=== PATIENT | female | born 1980 | race Caucasian/White ===

== ENCOUNTER 2016-08-14 21:59 | Inpatient (IN) | payer OTHER ==
[2016-08-14] MEDS ORDERED: INSULIN REGULAR BOLUS (FROM DRIP BAG) IV ONE (22:31)
[2016-08-14] MEDS ORDERED: SODIUM CHLORIDE 0.9% 1,000 ML IV ONE (22:31)
--- NOTE | 2016-08-14 22:40 | ED ---
General Adult HPI - General Chief complaint: Shortness of Breath Stated complaint: ASHLEY Dehydrated Time Seen by Provider: 08/14/16 22:18 Source: patient, family, RN notes reviewed Mode of arrival: ambulatory Limitations: no limitations - History of Present Illness Initial comments: Chief complaint history of present illness a 36-year-old female brought him from home because she wasn't feeling well. Complaining of stomach cramps nausea vomiting all day. Unable to keep any fluids down. Accu-Chek upon arrival to emergency room was over 600. The patient's type I diabetic. - Related Data Allergies Allergy/AdvReac Type Severity Reaction Status Date / Time No Known Allergies Allergy Verified 08/14/16 22:06 Review of Systems ROS Statement: Those systems with pertinent positive or pertinent negative responses have been documented in the HPI. Review of systems. Patient reports she feels so bad she can't even talk. Her friend answered questions. 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 He thought she was taken or glucose levels and thought there was 250 range but he did not see her do it. She states she did not check her sugar today. Unable to keep any fluids or food down all day normal for 24 hours. Patient has had a past history of DKA. All systems reviewed. Past medical problems but diabetes mellitus. No apparent surgical history. No known ALLERGIES. Family history noncontributory. ROS Other: All systems not noted in ROS Statement are negative. Past Medical History Past Medical History: Diabetes Mellitus History of Any Multi-Drug Resistant Organisms: None Reported Past Surgical History: No Surgical Hx Reported Past Psychological History: No Psychological Hx Reported Smoking Status: Current every day smoker Past Alcohol Use History: None Reported Past Drug Use History: None Reported General Exam - General Exam Comments Initial Comments: General: The patient is awake and alert, in moderate distress complaining of abdominal discomfort from frequent vomiting. States she's too sick even talk. Vital signs show temperature 97.9 pulse elevated to 134 sinus tach on EKG. Respiratory rate 20 pulse ox 99% room air blood pressure 157 /98. Eyes patient won't open her eyes for examination. Said she is too uncomfortable Ears, nose, mouth and throat: There are moist mucous membranes , Noted only while talking. Neck: The neck is supple, there is no tenderness Cardiovascular: Tachycardic heart rate, 140 No murmur, rub or gallop is appreciated. Respiratory: Lungs are clear to auscultation, respirations are non-labored, breath sounds are equal. No wheezes, stridor, rales, or rhonchi. Gastrointestinal: Complaining of abdominal pain from frequent vomiting for the past 24 hours. Back: Unable to examine his patient will rollover. Musculoskeletal: Patient pulls her knees up because of discomfort. Neurological: No evidence of any neuro deficits on cursory exam. Patient not cooperative. Skin: Skin is warm and dry and no rashes or lesions are noted. Limitations: no limitations Course Vital Signs 08/14/16 08/14/16 08/14/16 22:03 22:20 22:50 Temperature 97.9 F Pulse Rate 134 H 141 H 138 H Respiratory 20 26 H 27 H Rate Blood Pressure 157/98 146/92 152/85 O2 Sat by Pulse 99 96 96 Oximetry 08/14/16 23:20 Temperature Pulse Rate 130 H Respiratory 22 Rate Blood Pressure 178/69 O2 Sat by Pulse 98 Oximetry EKG Findings - EKG Comments: EKG Findings:: EKG was done and reviewed at 2211 showing sinus tachycardia rate 142 by atrial enlargement. WV interval was 1:30 QRS 76 QTc to [address] Garcia Medical Decision Making - Medical Decision Making Medical decision-making. Patient's labs show white count 25.8 hemoglobin 16 hematocrit of 57. The patient's sodium is 139 potassium elevated at 6.7. CO2 is less than 5. Gap 34. BUN 17 creatinine 1.3 GFR 51. Glucose measured by the labs be 699. Plasma lactic acid is elevated at 4.5. Phosphorus at 10.3. Acetone positive. Urine is 4+ glucose 4+ ketones. This patient was taken directly to the room after signing in. The patient had an IV started hydration was started and insulin IV push and insulin drip was initiated immediately. At this time the patient has received IV fluids and IV insulin. She has improved significantly. Able to open her eyes and talk. Not complaining of any pain. Denying any fever or illnesses . Arterial blood gases done pH 6.89, pCO2 of 17.7, Po2 149. Bicarb 3.2. Base excess -27. , O2 97%. I discussed the case with Dr. Wan, ICU senior project coordinator. He has been consulted for this case. At this time the patient will be admitted to the ICU for further management of DKA. At this time he does not recommend bicarb drip. - Lab Data Result diagrams: 08/14/16 22:22 08/14/16 22:22 Lab Results 08/14/16 08/14/16 08/14/16 Range/Units 22:22 22:22 22:22 WBC 25.8 H* (3.8-10.6) k/uL RBC 6.02 H (3.80-5.40) m/uL Hgb 16.0 (11.4-16.0) gm/dL Hct 57.2 H (34.0-46.0) % MCV 95.1 D (80.0-100.0) fL MCH 26.6 (25.0-35.0) pg MCHC 28.0 L (31.0-37.0) g/dL RDW 12.1 (11.5-15.5) % Plt Count 468 H (150-450) k/uL Neutrophils % 83 % Lymphocytes % 12 % Monocytes % 3 % Eosinophils % 0 % Basophils % 0 % Neutrophils # 21.4 H (1.3-7.7) k/uL Lymphocytes # 3.2 (1.0-4.8) k/uL Monocytes # 0.7 (0-1.0) k/uL Eosinophils # 0.1 (0-0.7) k/uL Basophils # 0.1 (0-0.2) k/uL Hypochromasia Marked Sodium 139 (137-145) mmol/L Potassium 6.7 H* (3.5-5.1) mmol/L Chloride 100 (98-107) mmol/L Carbon Dioxide <5 L* (22-30) mmol/L Anion Gap 34 mmol/L BUN 17 (7-17) mg/dL Creatinine 1.20 H (0.52-1.04) mg/dL Est GFR (MDRD) Af Amer >60 (>60 ml/min/1.73 sqM) Est GFR (MDRD) Non-Af 51 (>60 ml/min/1.73 sqM) Glucose 699 H* (74-99) mg/dL POC Glucose (mg/dL) (75-99) mg/dL POC Glu Bench Scientist ID Plasma Lactic Acid Yusef 4.5 H* (0.7-2.0) mmol/L Phosphorus 10.3 H* (2.5-4.5) mg/dL Urine Color Urine Appearance (Clear) Urine pH (5.0-8.0) Ur Specific [place] (1.001-1.035) Urine Protein (Negative) Urine Glucose (UA) (Negative) Urine Ketones (Negative) Urine Blood (Negative) Urine Nitrate (Negative) Urine Bilirubin (Negative) Urine Urobilinogen (<2.0) mg/dL Ur Leukocyte Esterase (Negative) Urine WBC (0-5) /hpf Ur Squamous Epith Cells (0-4) /hpf Hyaline Casts (0-2) /lpf Urine Mucus (None) /hpf Acetone, Qual Positive (Negative) 08/14/16 08/14/16 08/15/16 Range/Units 23:15 23:26 00:02 WBC (3.8-10.6) k/uL RBC (3.80-5.40) m/uL Hgb (11.4-16.0) gm/dL Hct (34.0-46.0) % MCV (80.0-100.0) fL MCH (25.0-35.0) pg MCHC (31.0-37.0) g/dL RDW (11.5-15.5) % Plt Count (150-450) k/uL Neutrophils % % Lymphocytes % % Monocytes % % Eosinophils % % Basophils % % Neutrophils # (1.3-7.7) k/uL Lymphocytes # (1.0-4.8) k/uL Monocytes # (0-1.0) k/uL Eosinophils # (0-0.7) k/uL Basophils # (0-0.2) k/uL Hypochromasia Sodium (137-145) mmol/L Potassium (3.5-5.1) mmol/L Chloride (98-107) mmol/L Carbon Dioxide (22-30) mmol/L Anion Gap mmol/L BUN (7-17) mg/dL Creatinine (0.52-1.04) mg/dL Est GFR (MDRD) Af Amer (>60 ml/min/1.73 sqM) Est GFR (MDRD) Non-Af (>60 ml/min/1.73 sqM) Glucose (74-99) mg/dL POC Glucose (mg/dL) >600 H 564 H (75-99) mg/dL POC Glu Bench Scientist NABOR Dagoberto Potter Dagoberto Potter Plasma Lactic Acid Yusef (0.7-2.0) mmol/L Phosphorus (2.5-4.5) mg/dL Urine Color Light Yellow Urine Appearance Clear (Clear) Urine pH 5.5 (5.0-8.0) Ur Specific [place] 1.017 (1.001-1.035) Urine Protein 1+ H (Negative) Urine Glucose (UA) 4+ H (Negative) Urine Ketones 4+ H (Negative) Urine Blood Trace H (Negative) Urine Nitrate Negative (Negative) Urine Bilirubin Negative (Negative) Urine Urobilinogen <2.0 (<2.0) mg/dL Ur Leukocyte Esterase Negative (Negative) Urine WBC 1 (0-5) /hpf Ur Squamous Epith Cells 2 (0-4) /hpf Hyaline Casts 1 (0-2) /lpf Urine Mucus Rare H (None) /hpf Acetone, Qual (Negative) Disposition Clinical Impression: Diabetic ketoacidosis Disposition: ADMITTED IP TO THIS [facility] Condition: Serious
[2016-08-14] MEDS ORDERED: METOCLOPRAMIDE 5 MG/ML 2 ML VIAL IVP STA (22:59)
[2016-08-14 23:04] LABS: Basophils # (A) 0.1 k/uL (0-0.2); Basophils % (A) 0 %; CH 25.7; CHCM 27.2; Eosinophils # (A) 0.1 k/uL (0-0.7); Eosinophils % (A) 0 %; HCT 57.2 % (34.0-46.0); Hypochromasia Marked; Luc # (Auto) 0.29; Luc % (Auto) 1; Lymphocytes # (A) 3.2 k/uL (1.0-4.8); Lymphocytes % (A) 12 %; MCH 26.6 pg (25.0-35.0); Mean Platelet Volume 7.7; Monocytes # (A) 0.7 k/uL (0-1.0); Monocytes % (A) 3 %; Neutrophils # (A) 21.4 k/uL (1.3-7.7); Neutrophils % (A) 83 %; RBC 6.02 m/uL (3.80-5.40); RDW 12.1 % (11.5-15.5); WBC (Perox) 26.78
[2016-08-14] MEDS ORDERED: HYDROmorphone 1 MG/ML 1 ML SYRINGE IVP STA (23:06)
[2016-08-14 23:11] LABS: MCV 95.1 fL (80.0-100.0)
[2016-08-14 23:12] LABS: WBC 25.8 k/uL (3.8-10.6)
[2016-08-14 23:13] LABS: Anion Gap 34 mmol/L; Blood Urea Nitrogen 17 mg/dL (7-17); Chloride 100 mmol/L (98-107); Non-African American GFR(MDRD) 51 (>60 ml/min/1.73 sqM); Sodium 139 mmol/L (137-145)
[2016-08-14 23:22] LABS: Glucose 699 mg/dL (74-99); Potassium 6.7 mmol/L (3.5-5.1)
[2016-08-14] MEDS: INSULIN REGULAR 100 UNIT in SODIUM CHLORIDE 0.9% 100 ML IV SCH (23:22)
[2016-08-14 23:23] LABS: Carbon Dioxide <5 mmol/L (22-30); Phosphorous 10.3 mg/dL (2.5-4.5)
[2016-08-14 23:29] LABS: Appearance,Urine Clear (Clear); Bilirubin,Urine Negative (Negative); Glucose,Urine (UA) 4+ (Negative); Leukocyte Esterase,Urine Negative (Negative); Mucus,Urine Rare /hpf; Nitrite,Urine Negative (Negative); PH, Urine 5.5 (5.0-8.0); Particle Count 1750; Protein,Urine 1+ (Negative); Specific Gravity,Urine 1.017 (1.001-1.035); Squamous Epithelial Cell,Urine 2 /hpf (0-4); UA Billing (MACRO vs. MICRO) MICRO; Urobilinogen,Urine <2.0 mg/dL (<2.0); WBC,Urine 1 /hpf (0-5)
[2016-08-14 23:31] LABS: Glucose,Whole Blood >600 mg/dL (75-99)
[2016-08-14 23:38] LABS: Ketones,Urine 4+ (Negative)
[2016-08-15 00:06] LABS: Glucose,Whole Blood 564 mg/dL (75-99)
[2016-08-15 00:59] LABS: ABG PCO2 18 mmHg (35-45); ABG PH <7.00 (7.35-7.45); ABG PO2 149 mmHg (83-108)
[2016-08-15 01:00] LABS: ABG HCO3 3 mmol/L (21-25); ABG TCO2 4 mmol/L (19-24)
[2016-08-15] MEDS ORDERED: SODIUM CHLORIDE 0.9% 2,000 ML IV ONE (01:00)
[2016-08-15] MEDS ORDERED: SODIUM CHLORIDE 0.9% 1,000 ML IV ONE (01:01)
[2016-08-15] MEDS: SODIUM CHLORIDE 0.9% 1,000 ML IV SCH ×2 (01:11→04:15)
[2016-08-15 01:16] LABS: Glucose,Whole Blood 420 mg/dL (75-99)
[2016-08-15 01:32] LABS: Glucose,Whole Blood 309 mg/dL (75-99)
[2016-08-15] MEDS: D5-0.45% NACL WITH KCL 20MEQ/L 1,000 ML IV SCH ×3 (02:18→09:27)
[2016-08-15 02:22] LABS: Glucose,Whole Blood 251 mg/dL (75-99)
[2016-08-15] MEDS ORDERED: NALOXONE 0.4 MG/ML 1 ML VIAL IV PRN (02:34)
[2016-08-15] MEDS: ONDANSETRON 4 MG/2 ML VIAL IVP PRN ×2 (03:15→08:18)
[2016-08-15 04:13] LABS: Glucose,Whole Blood 189 mg/dL (75-99)
[2016-08-15] MEDS: ACETAMINOPHEN IV (For NPO) 1,000 MG in EMPTY BAG 1 BAG IVPB PRN ×2 (04:14→09:27)
[2016-08-15 04:24] LABS: Basophils % (A) 0 %; CH 26.3; Eosinophils # (A) 0.2 k/uL (0-0.7); Eosinophils % (A) 1 %; HCT 44.4 % (34.0-46.0); HDW 2.33; HGB 13.2 gm/dL (11.4-16.0); Hypochromasia Marked; Luc # (Auto) 0.23; Luc % (Auto) 1; Lymphocytes # (A) 2.8 k/uL (1.0-4.8); Lymphocytes % (A) 12 %; MCH 26.1 pg (25.0-35.0); MCHC 29.6 g/dL (31.0-37.0); Mean Platelet Volume 6.6; Monocytes # (A) 1.1 k/uL (0-1.0); Monocytes % (A) 5 %; Neutrophils # (A) 19.8 k/uL (1.3-7.7); Neutrophils % (A) 82 %; RBC 5.04 m/uL (3.80-5.40); RDW 12.2 % (11.5-15.5); WBC 24.1 k/uL (3.8-10.6); WBC (Perox) 25.42
[2016-08-15 04:34] LABS: Anion Gap 21 mmol/L; Blood Urea Nitrogen 16 mg/dL (7-17); Calcium 8.2 mg/dL (8.4-10.2); Carbon Dioxide 8 mmol/L (22-30); Chloride 117 mmol/L (98-107); Glucose 198 mg/dL (74-99); Magnesium 1.8 mg/dL (1.6-2.3); Non-African American GFR(MDRD) >60 (>60 ml/min/1.73 sqM); Phosphorous 2.8 mg/dL (2.5-4.5); Potassium 4.9 mmol/L (3.5-5.1); Sodium 146 mmol/L (137-145)
[2016-08-15] MEDS ORDERED: Magnesium Replacement Protocol 1 EACH MISC MISCELLANE PRN (04:48)
[2016-08-15] MEDS: MAGNESIUM SULFATE-D5W PMX 1 GM in DEXTROSE/WATER 1 100ML.BAG IVPB SCH ×2 (06:09→10:21)
[2016-08-15 06:14] LABS: Glucose,Whole Blood 117 mg/dL (75-99)
[2016-08-15 07:10] LABS: Glucose,Whole Blood 146 mg/dL (75-99)
[2016-08-15 08:00] LABS: Glucose,Whole Blood 175 mg/dL (75-99)
[2016-08-15] MEDS: HEPARIN SODIUM,PORCINE 5,000 UNIT/ML 1 ML VIAL SQ SCH ×2 (08:18→17:10)
[2016-08-15] MEDS: PANTOPRAZOLE 40 MG/10 ML VIAL IV SCH (08:18)
[2016-08-15 09:00] LABS: Glucose,Whole Blood 207 mg/dL (75-99)
[2016-08-15 09:06] LABS: Anion Gap 20 mmol/L; Calcium 8.3 mg/dL (8.4-10.2); Chloride 118 mmol/L (98-107); Glucose 196 mg/dL (74-99); Non-African American GFR(MDRD) >60 (>60 ml/min/1.73 sqM); Sodium 145 mmol/L (137-145); Total Bilirubin 0.9 mg/dL (0.2-1.3)
[2016-08-15 09:12] LABS: AST 27 U/L (14-36); Blood Urea Nitrogen 13 mg/dL (7-17); Carbon Dioxide 7 mmol/L (22-30); Phosphorous 2.7 mg/dL (2.5-4.5); Potassium 5.1 mmol/L (3.5-5.1); Total Protein 7.5 g/dL (6.3-8.2)
[2016-08-15 09:13] LABS: ALT 29 U/L (9-52); Alkaline Phosphatase 99 U/L (38-126)
[2016-08-15 09:53] LABS: Hemoglobin A1C 10.4 % (4.2-6.1)
[2016-08-15 10:18] LABS: Glucose,Whole Blood 180 mg/dL (75-99)
[2016-08-15 11:20] LABS: Glucose,Whole Blood 178 mg/dL (75-99)
[2016-08-15 12:11] LABS: Glucose,Whole Blood 190 mg/dL (75-99)
--- NOTE | 2016-08-15 13:16 | P.HPIM ---
History of Present Illness H&P Date: 08/15/16 Chief Complaint: Abdominal pain and nausea This is a 36-year-old female with past medical history noted below significant for type 1 diabetes mellitus who presented to the emergency room with worsening abdominal pain and nausea. Patient said that for the past few days she has not been feeling well. She admitted that she misses her insulin once or twice a day as she has been under a lot of stress recently. She does not have a good follow-up as an outpatient and said that she has been buying her insulin from [employer] [id number] without any prescription. She recently has established care with a new primary care physician in May. She does not recall what was her last A1c. She is not sure about her insulin dosage either and appeared confused about her sliding scale. In the emergency room she was evaluated and was found to have DKA with elevated anion gap and significant metabolic acidosis. She was admitted to the intensive care. Review of Systems Review of system: 14 points review of systems were obtained and were negative except to what were mentioned in the HPI. Past Medical History Past Medical History: Diabetes Mellitus, Thyroid Disorder Additional Past Medical History / Comment(s): Had Anum's but resolved several years ago with diet changes History of Any Multi-Drug Resistant Organisms: None Reported Past Surgical History: No Surgical Hx Reported Past Anesthesia/Blood Transfusion Reactions: No Reported Reaction Past Psychological History: No Psychological Hx Reported Smoking Status: Former smoker Past Alcohol Use History: None Reported Past Drug Use History: None Reported - Past Family History Father Family Medical History: Hypertension Additional Family Medical History / Comment(s): High blood sugar, but not on meds for currently Medications and Allergies Home Medications Medication Instructions Recorded Confirmed Type Insulin NPH Human Isophane 32 unit SQ HS 08/15/16 08/15/16 History [NovoLIN N] Insulin NPH Human Isophane 35 unit SQ QAM 08/15/16 08/15/16 History [NovoLIN N] Insulin Regular, Human [NovoLIN R] 20 unit SQ QAM 08/15/16 08/15/16 History Insulin Regular, Human [NovoLIN R] 25 unit SQ HS 08/15/16 08/15/16 History Lisinopril [Zestril] 10 mg PO DAILY 08/15/16 08/15/16 History Allergies Allergy/AdvReac Type Severity Reaction Status Date / Time banana Allergy Anaphylaxis Verified 08/15/16 12:24 coconut Allergy Anaphylaxis Verified 08/15/16 12:24 Physical Exam Vitals: Vital Signs Temp Pulse Pulse Resp BP BP Pulse Ox 08/15/16 12:00 98.1 F 108 H 103 H 16 101/63 99 08/15/16 11:00 103 H 20 105/58 99 08/15/16 10:00 109 H 19 98/60 99 08/15/16 09:00 109 H 24 106/65 100 08/15/16 08:00 98.3 F 120 H 103 H 19 123/62 99 08/15/16 07:00 126 H 20 112/60 98 08/15/16 06:30 115 H 22 112/62 99 08/15/16 06:00 117 H 20 108/67 99 08/15/16 05:30 123 H 20 114/65 98 08/15/16 05:00 121 H 23 104/66 99 08/15/16 04:30 122 H 23 105/68 100 08/15/16 04:00 97.6 F 122 H 21 107/62 98 08/15/16 03:30 124 H 24 108/66 98 08/15/16 03:00 138 H 21 144/65 99 08/15/16 02:30 137 H 20 131/72 100 08/15/16 02:00 141 H 28 H 140/78 100 08/15/16 01:30 98.2 F 143 H 20 142/77 100 08/15/16 01:25 148 H 08/15/16 01:03 97.6 F 135 H 22 142/68 98 08/15/16 00:40 98.2 F 142 H 16 140/78 100 08/15/16 00:38 133 H 20 129/66 98 Intake and Output 08/14/16 08/15/16 08/15/16 22:59 06:59 14:59 Intake Total 1057.333 953.05 Output Total 2075 570 Balance -1017.667 383.05 Intake: IV 207 Insulin Regular 100 unit 7 In Sodium Chloride 0.9% 100 ml @ 0.1 UNITS/KG/HR 7.33 mls/hr IV .[id number] LEFTY Rx#:[id number] Sodium Chloride 0.9% 1, 200 000 ml @ 200 mls/hr IV . Q5H LEFTY Rx#:[id number] Intake, IV Titration 850.333 953.05 Amount ACETAMINOPHEN IV (For NPO 100 100 ) 1,000 mg In Empty Bag 1 bag @ 400 mls/hr IVPB Q6HR PRN Rx#:[id number] D5-0.45% NaCl with KCl 600 750 20Meq/l 1,000 ml @ 150 mls/hr IV .[id number] LEFTY Rx# :[id number] Insulin Regular 100 unit 50.333 3.05 In Sodium Chloride 0.9% 100 ml @ 0.1 UNITS/KG/HR 7.33 mls/hr IV .[id number] LEFTY Rx#:[id number] Magnesium Sulfate-D5w Pmx 100 100 1 gm In Dextrose/Water 1 100ml.bag @ 100 mls/hr IVPB Q1H LEFTY Rx#: [id number] Oral 0 Output: Urine 2075 570 Other: Voiding Method Indwelling Catheter Indwelling Catheter Weight 71.3 kg General: The patient is awake and alert, in no distress Eye: there is normal conjunctiva bilaterally. Neck: The neck is supple, there is no JVD. Cardiovascular: Normal S1-S2, no S3-S4, no murmurs. Respiratory: Lungs clear to auscultation bilaterally Gastrointestinal: Abdomen is soft, nontender Musculoskeletal: There is no pedal edema. Neurological:. Speech is normal. Skin: Skin is warm and dry Results CBC & Chem 7: 08/15/16 04:15 08/15/16 08:33 Labs: Abnormal Lab Results - Last 24 Hours (Table) 08/15/16 08/15/16 08/15/16 Range/Units 01:07 01:28 02:21 WBC (3.8-10.6) k/uL MCHC (31.0-37.0) g/dL Neutrophils # (1.3-7.7) k/uL Monocytes # (0-1.0) k/uL APTT (22.0-30.0) sec Sodium (137-145) mmol/L Chloride (98-107) mmol/L Carbon Dioxide (22-30) mmol/L Glucose (74-99) mg/dL POC Glucose (mg/dL) 420 H 309 H 251 H (75-99) mg/dL Calcium (8.4-10.2) mg/dL 08/15/16 08/15/16 08/15/16 Range/Units 04:08 04:15 04:15 WBC 24.1 H (3.8-10.6) k/uL MCHC 29.6 L (31.0-37.0) g/dL Neutrophils # 19.8 H (1.3-7.7) k/uL Monocytes # 1.1 H (0-1.0) k/uL APTT (22.0-30.0) sec Sodium 146 H (137-145) mmol/L Chloride 117 H (98-107) mmol/L Carbon Dioxide 8 L* (22-30) mmol/L Glucose 198 H (74-99) mg/dL POC Glucose (mg/dL) 189 H (75-99) mg/dL Calcium 8.2 L (8.4-10.2) mg/dL 08/15/16 08/15/16 08/15/16 Range/Units 04:15 06:13 07:09 WBC (3.8-10.6) k/uL MCHC (31.0-37.0) g/dL Neutrophils # (1.3-7.7) k/uL Monocytes # (0-1.0) k/uL APTT 21.0 L (22.0-30.0) sec Sodium (137-145) mmol/L Chloride (98-107) mmol/L Carbon Dioxide (22-30) mmol/L Glucose (74-99) mg/dL POC Glucose (mg/dL) 117 H 146 H (75-99) mg/dL Calcium (8.4-10.2) mg/dL 08/15/16 08/15/16 08/15/16 Range/Units 07:59 08:33 08:59 WBC (3.8-10.6) k/uL MCHC (31.0-37.0) g/dL Neutrophils # (1.3-7.7) k/uL Monocytes # (0-1.0) k/uL APTT (22.0-30.0) sec Sodium (137-145) mmol/L Chloride 118 H (98-107) mmol/L Carbon Dioxide 7 L* (22-30) mmol/L Glucose 196 H (74-99) mg/dL POC Glucose (mg/dL) 175 H 207 H (75-99) mg/dL Calcium 8.3 L (8.4-10.2) mg/dL 08/15/16 08/15/16 08/15/16 Range/Units 10:16 11:18 12:10 WBC (3.8-10.6) k/uL MCHC (31.0-37.0) g/dL Neutrophils # (1.3-7.7) k/uL Monocytes # (0-1.0) k/uL APTT (22.0-30.0) sec Sodium (137-145) mmol/L Chloride (98-107) mmol/L Carbon Dioxide (22-30) mmol/L Glucose (74-99) mg/dL POC Glucose (mg/dL) 180 H 178 H 190 H (75-99) mg/dL Calcium (8.4-10.2) mg/dL Microbiology - Last 24 Hours (Table) 08/15/16 02:00 Urine Culture - Preliminary Urine,Catheterized Thrombosis Risk Factor Assmnt - Choose All That Apply Each Factor Represents 1 point: Obesity (BMI >25) Thrombosis Risk Factor Assessment Total Risk Factor Score: 1 Thrombosis Risk Factor Assessment Level: Low Risk Assessment and Plan Plan: 1. Diabetic ketoacidosis 2. Acute/severe metabolic acidosis with pH below 7 on presentation 3. Uncontrolled type 1 diabetes mellitus 4. Medication noncompliance 5. Acute kidney injury secondary to dehydration 6. Leukocytosis most likely reactive with no evidence of underlying infection Continue DKA protocol and aggressive IV fluid hydration. Repeat lab work per protocol and in the morning. Continue ICU care. Today, I counseled the patient extensively about medication compliance. Her insulin regimen include Novolin R and Novolin N will be adjusted.
--- NOTE | 2016-08-15 13:47 | P.CNPUL ---
History of Present Illness Consult date: 08/15/16 Requesting physician: Carline Landry Reason for consult: other (Acute diabetic ketoacidosis, in the ICU) Chief complaint: Abdominal pain and nausea and vomiting History of present illness: This is a 36-year-old female with history of type 1 diabetes, for the last 20 years. Patient describes being recently under a lot of stress, but she has been compliant with her insulin injections on a regular basis. For a long period of time, patient has been getting her insulin [id number], but recently she established with a primary care physician, and her insulin dose was adjusted accordingly based on her elevated hemoglobin A1c. Patient seems to be confused about her insulin dosing, patient presented to the ER with chief complaint of not feeling well for the last few days, and over the last few hours , patient has been complaining of nausea vomiting and abdominal discomfort. Upon evaluation in the ER, patient was noted to be in diabetic ketoacidosis, her blood sugar was significantly elevated. And she had a significant anion gap and metabolic acidosis. Patient was admitted, and this consult was initiated. She was placed on the DKA protocol, and she seems to be doing well and progressing quite nicely over the last 10 hours. At the time of my evaluation, patient had no complaints, no cough no wheezing no shortness of breath no chest pain no nausea no vomiting no abdominal pain no melena no hematemesis. No dysuria or frequency no urgency. Review of Systems 14 point review of systems were obtained, please refer to pertinent positives and negatives in HPI. Past Medical History Past Medical History: Diabetes Mellitus, Thyroid Disorder Additional Past Medical History / Comment(s): Had Anum's but resolved several years ago with diet changes History of Any Multi-Drug Resistant Organisms: None Reported Past Surgical History: No Surgical Hx Reported Past Anesthesia/Blood Transfusion Reactions: No Reported Reaction Past Psychological History: No Psychological Hx Reported Smoking Status: Former smoker Past Alcohol Use History: None Reported Past Drug Use History: None Reported - Past Family History Father Family Medical History: Hypertension Additional Family Medical History / Comment(s): High blood sugar, but not on meds for currently Medications and Allergies Home Medications Medication Instructions Recorded Confirmed Type Insulin NPH Human Isophane 32 unit SQ HS 08/15/16 08/15/16 History [NovoLIN N] Insulin NPH Human Isophane 35 unit SQ QAM 08/15/16 08/15/16 History [NovoLIN N] Insulin Regular, Human [NovoLIN R] 20 unit SQ QAM 08/15/16 08/15/16 History Insulin Regular, Human [NovoLIN R] 25 unit SQ HS 08/15/16 08/15/16 History Lisinopril [Zestril] 10 mg PO DAILY 08/15/16 08/15/16 History Allergies Allergy/AdvReac Type Severity Reaction Status Date / Time banana Allergy Anaphylaxis Verified 08/15/16 12:24 coconut Allergy Anaphylaxis Verified 08/15/16 12:24 Physical Exam Vitals: Vital Signs Temp Pulse Pulse Resp BP BP Pulse Ox 08/15/16 12:00 98.1 F 108 H 103 H 16 101/63 99 08/15/16 11:00 103 H 20 105/58 99 08/15/16 10:00 109 H 19 98/60 99 08/15/16 09:00 109 H 24 106/65 100 08/15/16 08:00 98.3 F 120 H 103 H 19 123/62 99 08/15/16 07:00 126 H 20 112/60 98 08/15/16 06:30 115 H 22 112/62 99 08/15/16 06:00 117 H 20 108/67 99 08/15/16 05:30 123 H 20 114/65 98 08/15/16 05:00 121 H 23 104/66 99 08/15/16 04:30 122 H 23 105/68 100 08/15/16 04:00 97.6 F 122 H 21 107/62 98 08/15/16 03:30 124 H 24 108/66 98 08/15/16 03:00 138 H 21 144/65 99 08/15/16 02:30 137 H 20 131/72 100 08/15/16 02:00 141 H 28 H 140/78 100 08/15/16 01:30 98.2 F 143 H 20 142/77 100 08/15/16 01:25 148 H 08/15/16 01:03 97.6 F 135 H 22 142/68 98 08/15/16 00:40 98.2 F 142 H 16 140/78 100 08/15/16 00:38 133 H 20 129/66 98 Intake and Output 08/14/16 08/15/16 08/15/16 22:59 06:59 14:59 Intake Total 1057.333 953.05 Output Total 2075 570 Balance -1017.667 383.05 Intake: IV 207 Insulin Regular 100 unit 7 In Sodium Chloride 0.9% 100 ml @ 0.1 UNITS/KG/HR 7.33 mls/hr IV .[id number] LEFT[facility] Rx#:[id number] Sodium Chloride 0.9% 1, 200 000 ml @ 200 mls/hr IV . Q5H LEFT[facility] Rx#:[id number] Intake, IV Titration 850.333 953.05 Amount ACETAMINOPHEN IV (For NPO 100 100 ) 1,000 mg In Empty Bag 1 bag @ 400 mls/hr IVPB Q6HR PRN Rx#:[id number] D5-0.45% NaCl with KCl 600 750 20Meq/l 1,000 ml @ 150 mls/hr IV .[id number] LEFTY Rx# :[id number] Insulin Regular 100 unit 50.333 3.05 In Sodium Chloride 0.9% 100 ml @ 0.1 UNITS/KG/HR 7.33 mls/hr IV .[id number] LEFTY Rx#:[id number] Magnesium Sulfate-D5w Pmx 100 100 1 gm In Dextrose/Water 1 100ml.bag @ 100 mls/hr IVPB Q1H LEFTY Rx#: [id number] Oral 0 Output: Urine 2074 570 Other: Voiding Method Indwelling Catheter Indwelling Catheter Weight 71.3 kg Physical Exam: Revealed a 36-year-old female in no distress HEENT:[Neck is supple.] [No neck masses.] [No thyromegaly.] [No JVD.] Chest: [Clear throughout, no crackles, no rhonchi, no wheezes.] Cardiac Exam: [Normal S1 and S2, no S3 gallop, no murmur.] Abdomen: [Soft, nontender, no megaly, no rebound, no guarding, normal bowel sounds.] Extremities: [No clubbing, no edema, no cyanosis.] Neurological Exam: [No focal neurologic deficit.] Results - Laboratory Findings CBC and BMP: 08/15/16 04:15 08/15/16 08:33 ABG ABG pH <7.00 (7.35-7.45) L* 08/15/16 00:00 ABG pCO2 18 mmHg (35-45) L* 08/15/16 00:00 ABG pO2 149 mmHg (83-108) H 08/15/16 00:00 ABG O2 Saturation 97.0 % (94-97) 08/15/16 00:00 Abnormal lab findings: Abnormal Labs 08/15/16 08/15/16 08/15/16 01:07 01:28 02:21 WBC MCHC Neutrophils # Monocytes # APTT Sodium Chloride Carbon Dioxide Glucose POC Glucose (mg/dL) 420 H 309 H 251 H Calcium 08/15/16 08/15/16 08/15/16 04:08 04:15 04:15 WBC 24.1 H MCHC 29.6 L Neutrophils # 19.8 H Monocytes # 1.1 H APTT Sodium 146 H Chloride 117 H Carbon Dioxide 8 L* Glucose 198 H POC Glucose (mg/dL) 189 H Calcium 8.2 L 08/15/16 08/15/16 08/15/16 04:15 06:13 07:09 WBC MCHC Neutrophils # Monocytes # APTT 21.0 L Sodium Chloride Carbon Dioxide Glucose POC Glucose (mg/dL) 117 H 146 H Calcium 08/15/16 08/15/16 08/15/16 07:59 08:33 08:59 WBC MCHC Neutrophils # Monocytes # APTT Sodium Chloride 118 H Carbon Dioxide 7 L* Glucose 196 H POC Glucose (mg/dL) 175 H 207 H Calcium 8.3 L 08/15/16 08/15/16 08/15/16 10:16 11:18 12:10 WBC MCHC Neutrophils # Monocytes # APTT Sodium Chloride Carbon Dioxide Glucose POC Glucose (mg/dL) 180 H 178 H 190 H Calcium - Diagnostic Findings Additional studies: No x-rays or radiographic studies were done. Assessment and Plan Plan: Impression: 1 acute diabetic ketoacidosis, most likely secondary to noncompliance. 2 acute severe anion gap metabolic acidosis secondary to DKA. 3 acute kidney injury upon presentation secondary to dehydration and diabetic ketoacidosis however her creatinine has corrected nicely over the last 12 hours. 4 history of medical noncompliance. Recommendation: Continue present treatment plan, continue to follow the protocol for DKA, possible transfer to a regular medical floor either later this evening or in a.m. Continue to monitor electrolytes and anion gap. Time with Patient: Greater than 30
[2016-08-15 14:02] LABS: Glucose,Whole Blood 219 mg/dL (75-99)
[2016-08-15 14:59] LABS: Glucose,Whole Blood 214 mg/dL (75-99)
[2016-08-15 16:04] LABS: Glucose,Whole Blood 208 mg/dL (75-99)
[2016-08-15 16:42] LABS: ALT 30 U/L (9-52); AST 17 U/L (14-36); Alkaline Phosphatase 92 U/L (38-126); Anion Gap 7 mmol/L; Blood Urea Nitrogen 8 mg/dL (7-17); Calcium 8.1 mg/dL (8.4-10.2); Carbon Dioxide 17 mmol/L (22-30); Chloride 113 mmol/L (98-107); Glucose 196 mg/dL (74-99); Non-African American GFR(MDRD) >60 (>60 ml/min/1.73 sqM); Phosphorous 1.5 mg/dL (2.5-4.5); Potassium 4.4 mmol/L (3.5-5.1); Sodium 137 mmol/L (137-145); Total Bilirubin 0.7 mg/dL (0.2-1.3); Total Protein 5.9 g/dL (6.3-8.2)
[2016-08-15 17:11] LABS: Glucose,Whole Blood 159 mg/dL (75-99)
[2016-08-15 17:16] LABS: Glucose,Whole Blood >600 mg/dL (75-99)
[2016-08-15] MEDS ORDERED: INSULIN REGULAR 100 UNIT/ML VIAL SQ SCH (17:30)
[2016-08-15] MEDS: INSULIN REGULAR 100 UNIT in SODIUM CHLORIDE 0.9% 100 ML IV SCH (17:49)
[2016-08-15] MEDS: INSULIN LISPRO (humaLOG) 300 UNIT/3 ML VIAL SQ SCH ×2 (17:52→20:46)
[2016-08-15] MEDS ORDERED: D5-0.45% NACL WITH KCL 20MEQ/L 1,000 ML IV SCH (18:00)
[2016-08-15 20:47] LABS: Glucose,Whole Blood 115 mg/dL (75-99)
[2016-08-15] MEDS ORDERED: INSULIN NPH 300 UNIT/3 ML VIAL SQ SCH (21:00)
[2016-08-15 22:06] LABS: Glucose,Whole Blood 75 mg/dL (75-99)
[2016-08-15 23:17] LABS: Glucose,Whole Blood 75 mg/dL (75-99)
[2016-08-16 00:48] LABS: Glucose,Whole Blood 137 mg/dL (75-99)
[2016-08-16] MEDS: HEPARIN SODIUM,PORCINE 5,000 UNIT/ML 1 ML VIAL SQ SCH ×4 (00:48→22:59)
[2016-08-16 04:59] LABS: Basophils # (A) 0.1 k/uL (0-0.2); Basophils % (A) 1 %; CH 26.8; CHCM 32.1; Eosinophils # (A) 0.2 k/uL (0-0.7); Eosinophils % (A) 2 %; HCT 37.6 % (34.0-46.0); HGB 11.8 gm/dL (11.4-16.0); Luc % (Auto) 2; Lymphocytes # (A) 3.1 k/uL (1.0-4.8); Lymphocytes % (A) 28 %; MCH 26.4 pg (25.0-35.0); MCHC 31.5 g/dL (31.0-37.0); Mean Platelet Volume 7.2; Monocytes # (A) 0.4 k/uL (0-1.0); Monocytes % (A) 4 %; Neutrophils # (A) 6.9 k/uL (1.3-7.7); Neutrophils % (A) 64 %; RBC 4.48 m/uL (3.80-5.40); RDW 12.6 % (11.5-15.5); WBC 10.8 k/uL (3.8-10.6); WBC (Perox) 11.49
[2016-08-16 05:13] LABS: Anion Gap 12 mmol/L; Blood Urea Nitrogen 8 mg/dL (7-17); Calcium 8.4 mg/dL (8.4-10.2); Carbon Dioxide 15 mmol/L (22-30); Chloride 111 mmol/L (98-107); Glucose 365 mg/dL (74-99); Magnesium 1.8 mg/dL (1.6-2.3); Non-African American GFR(MDRD) >60 (>60 ml/min/1.73 sqM); Potassium 4.6 mmol/L (3.5-5.1); Sodium 138 mmol/L (137-145)
[2016-08-16 05:25] LABS: Glucose,Whole Blood 355 mg/dL (75-99)
[2016-08-16] MEDS ORDERED: INSULIN REGULAR BOLUS (FROM DRIP BAG) IV ONE (05:35)
[2016-08-16] MEDS ORDERED: Magnesium Replacement Protocol 1 EACH MISC MISCELLANE PRN (05:38)
[2016-08-16] MEDS ORDERED: INSULIN REGULAR 100 UNIT in SODIUM CHLORIDE 0.9% 100 ML IV SCH (05:45)
[2016-08-16] MEDS: INSULIN LISPRO (humaLOG) 300 UNIT/3 ML VIAL SQ SCH ×4 (06:27→21:40)
[2016-08-16] MEDS: INSULIN REGULAR 100 UNIT/ML VIAL SQ SCH ×3 (06:28→16:53)
[2016-08-16] MEDS: MAGNESIUM SULFATE-D5W PMX 1 GM in DEXTROSE/WATER 1 100ML.BAG IVPB SCH ×2 (07:08→09:49)
[2016-08-16 07:29] LABS: Glucose,Whole Blood 345 mg/dL (75-99)
[2016-08-16] MEDS: INSULIN NPH 300 UNIT/3 ML VIAL SQ SCH (07:45)
[2016-08-16] MEDS: PANTOPRAZOLE 40 MG/10 ML VIAL IV SCH (07:48)
[2016-08-16] MEDS ORDERED: Phosphorus Replacement Protoco 1 EACH MISC MISCELLANE PRN (07:55)
[2016-08-16 08:21] LABS: Mis test requested (Blood) PTT
[2016-08-16 08:22] LABS: Mis test result (Blood) 32.1
[2016-08-16] MEDS: SODIUM PHOSPHATE 10 MMOL in SODIUM CHLORIDE 0.9% 250 ML IVPB SCH ×2 (08:29→12:30)
[2016-08-16] MEDS ORDERED: INSULIN NPH 300 UNIT/3 ML VIAL SQ SCH ×2 (09:00→21:00)
[2016-08-16 09:08] LABS: Glucose,Whole Blood 273 mg/dL (75-99)
--- NOTE | 2016-08-16 10:38 | P.PN ---
Subjective Progress note dated 08/16/2016 next This is a 36-year-old female with a long-standing history of type 1 diabetes. She apparently presented with diabetic ketoacidosis. She was admitted on the fifth. Currently not on any supplemental oxygen or any IV fluids. The patient can be transferred out of the unit. She apparently has not had insurance for some time and has not been seeing a doctor. Recently started seeing Dr. Styles. Has not seen an online marketer. I did ask the nurse to check a immobile but A1c to see what her sugars have been running. She is very stable appearing. No distress. No issues. No respiratory problems. No hemodynamic issues. Objective - Vital Signs Vital signs: Vital Signs Temp 98.5 F 08/16/16 08:00 Pulse 104 H 08/16/16 10:00 Resp 18 08/16/16 10:00 BP 120/72 08/16/16 10:00 Pulse Ox 97 08/16/16 10:00 Intake & Output 08/15/16 08/16/16 08/16/16 18:59 06:59 18:59 Intake Total 1653.05 0 775 Output Total 1015 50 Balance 638.05 -50 775 Weight 71 kg Intake: Intake, IV Titration 1653.05 0 575 Amount ACETAMINOPHEN IV (For NPO 100 ) 1,000 mg In Empty Bag 1 bag @ 400 mls/hr IVPB Q6HR PRN Rx#:[id number] D5-0.45% NaCl with KCl 1350 20Meq/l 1,000 ml @ 150 mls/hr IV .Q6H40M [facility] Rx# :[id number] D5-0.45% NaCl with KCl 100 0 20Meq/l 1,000 ml @ 50 mls /hr IV .Q20H [facility] Rx#: [id number] Insulin Regular 100 unit 3.05 In Sodium Chloride 0.9% 100 ml @ 0.1 UNITS/KG/HR 7.33 mls/hr IV .[id number] [facility] Rx#:[id number] Magnesium Sulfate-D5w Pmx 100 1 gm In Dextrose/Water 1 100ml.bag @ 100 mls/hr IVPB Q1H [facility] Rx#: [id number] Magnesium Sulfate-D5w Pmx 200 1 gm In Dextrose/Water 1 100ml.bag @ 100 mls/hr IVPB Q1H [facility] Rx#: [id number] Sodium Phosphate 10 mmol 375 In Sodium Chloride 0.9% 250 ml @ 125 mls/hr IVPB Q2H [facility] Rx#:[id number] Oral 200 Output: Urine 1015 50 Uretheral ([place]) 50 Other: Voiding Method Indwelling Catheter Toilet Toilet # Voids 1 0 - Exam No acute distress, oriented 3. HEENT examination is grossly unremarkable. Mucous membranes are moist. Neck is Supple. Full range of motion. No adenopathy. Neck veins are flat. Cardiovascular examination reveals regular rhythm rate. S1-S2 normal. No S3- S4 or murmur. Lungs reveal clear breath sounds. No wheezes rhonchi or crackles. Abdomen is soft. Extremities are intact. - Labs CBC & Chem 7: 08/16/16 04:24 08/16/16 04:24 Labs: Abnormal Lab Results - Last 24 Hours (Table) 08/15/16 08/15/16 08/15/16 Range/Units 11:18 12:10 14:01 WBC (3.8-10.6) k/uL Chloride (98-107) mmol/L Carbon Dioxide (22-30) mmol/L Creatinine (0.52-1.04) mg/dL Glucose (74-99) mg/dL POC Glucose (mg/dL) 178 H 190 H 219 H (75-99) mg/dL Calcium (8.4-10.2) mg/dL Phosphorus (2.5-4.5) mg/dL Total Protein (6.3-8.2) g/dL Albumin (3.5-5.0) g/dL 08/15/16 08/15/16 08/15/16 Range/Units 14:58 16:03 16:10 WBC (3.8-10.6) k/uL Chloride 113 H (98-107) mmol/L Carbon Dioxide 17 L (22-30) mmol/L Creatinine 0.48 L (0.52-1.04) mg/dL Glucose 196 H (74-99) mg/dL POC Glucose (mg/dL) 214 H 208 H (75-99) mg/dL Calcium 8.1 L (8.4-10.2) mg/dL Phosphorus 1.5 L (2.5-4.5) mg/dL Total Protein 5.9 L (6.3-8.2) g/dL Albumin 3.3 L (3.5-5.0) g/dL 08/15/16 08/15/16 08/16/16 Range/Units 17:09 20:44 00:46 WBC (3.8-10.6) k/uL Chloride (98-107) mmol/L Carbon Dioxide (22-30) mmol/L Creatinine (0.52-1.04) mg/dL Glucose (74-99) mg/dL POC Glucose (mg/dL) 159 H 115 H 137 H (75-99) mg/dL Calcium (8.4-10.2) mg/dL Phosphorus (2.5-4.5) mg/dL Total Protein (6.3-8.2) g/dL Albumin (3.5-5.0) g/dL 08/16/16 08/16/16 08/16/16 Range/Units 04:24 04:24 05:23 WBC 10.8 H (3.8-10.6) k/uL Chloride 111 H (98-107) mmol/L Carbon Dioxide 15 L (22-30) mmol/L Creatinine (0.52-1.04) mg/dL Glucose 365 H (74-99) mg/dL POC Glucose (mg/dL) 355 H (75-99) mg/dL Calcium (8.4-10.2) mg/dL Phosphorus 2.0 L (2.5-4.5) mg/dL Total Protein (6.3-8.2) g/dL Albumin (3.5-5.0) g/dL 08/16/16 08/16/16 Range/Units 07:27 09:06 WBC (3.8-10.6) k/uL Chloride (98-107) mmol/L Carbon Dioxide (22-30) mmol/L Creatinine (0.52-1.04) mg/dL Glucose (74-99) mg/dL POC Glucose (mg/dL) 345 H 273 H (75-99) mg/dL Calcium (8.4-10.2) mg/dL Phosphorus (2.5-4.5) mg/dL Total Protein (6.3-8.2) g/dL Albumin (3.5-5.0) g/dL Microbiology - Last 24 Hours (Table) 08/15/16 02:00 Urine Culture - Preliminary Urine,Catheterized Assessment and Plan (1) Diabetic ketoacidosis Status: Acute Plan: Plan The patient's doing well. Can be discharged out of the unit to the general medical floor. Should eventually have endocrinology evaluation. The patient will have a hemoglobin A1c checked. Time with Patient: Less than 30
[2016-08-16 10:40] VITALS: BMI 28.6
[2016-08-16 10:52] LABS: Hemoglobin A1C 10.6 % (4.2-6.1)
[2016-08-16] MEDS ORDERED: ACETAMINOPHEN TAB 500 MG TAB PO PRN (11:32)
[2016-08-16 11:53] LABS: Glucose,Whole Blood 208 mg/dL (75-99)
--- NOTE | 2016-08-16 13:34 | P.PN ---
Subjective Principal diagnosis: DKA No events overnight. Blood glucose uncontrolled today as patient did not get her Novolin and last night. Objective - Vital Signs Vital signs: Vital Signs Temp 98.6 F 08/16/16 13:24 Pulse 86 08/16/16 13:24 Resp 19 08/16/16 13:24 BP 130/84 08/16/16 13:24 Pulse Ox 98 08/16/16 13:24 Intake & Output 08/15/16 08/16/16 08/16/16 18:59 06:59 18:59 Intake Total 1653.05 0 775 Output Total 1015 50 Balance 638.05 -50 775 Weight 71 kg 71 kg Intake: Intake, IV Titration 1653.05 0 575 Amount ACETAMINOPHEN IV (For NPO 100 ) 1,000 mg In Empty Bag 1 bag @ 400 mls/hr IVPB Q6HR PRN Rx#:[id number] D5-0.45% NaCl with KCl 1350 20Meq/l 1,000 ml @ 150 mls/hr IV .Q6H40M [facility] Rx# :[id number] D5-0.45% NaCl with KCl 100 0 20Meq/l 1,000 ml @ 50 mls /hr IV .Q20H [facility] Rx#: [id number] Insulin Regular 100 unit 3.05 In Sodium Chloride 0.9% 100 ml @ 0.1 UNITS/KG/HR 7.33 mls/hr IV .[id number] [facility] Rx#:[id number] Magnesium Sulfate-D5w Pmx 100 1 gm In Dextrose/Water 1 100ml.bag @ 100 mls/hr IVPB Q1H [facility] Rx#: [id number] Magnesium Sulfate-D5w Pmx 200 1 gm In Dextrose/Water 1 100ml.bag @ 100 mls/hr IVPB Q1H [facility] Rx#: [id number] Sodium Phosphate 10 mmol 375 In Sodium Chloride 0.9% 250 ml @ 125 mls/hr IVPB Q2H [facility] Rx#:[id number] Oral 200 Output: Urine 1015 50 Uretheral ([place]) 50 Other: Voiding Method Indwelling Catheter Toilet Toilet # Voids 1 0 - Exam General: The patient is awake and alert, in no distress Eye: there is normal conjunctiva bilaterally. Neck: The neck is supple, there is no JVD. Cardiovascular: Normal S1-S2, no S3-S4, no murmurs. Respiratory: Lungs clear to auscultation bilaterally Gastrointestinal: Abdomen is soft, nontender Musculoskeletal: There is no pedal edema. Neurological:. Speech is normal. Skin: Skin is warm and dry - Labs CBC & Chem 7: 08/16/16 04:24 08/16/16 04:24 Labs: Abnormal Lab Results - Last 24 Hours (Table) 08/15/16 08/15/16 08/15/16 Range/Units 14:01 14:58 16:03 WBC (3.8-10.6) k/uL Chloride (98-107) mmol/L Carbon Dioxide (22-30) mmol/L Creatinine (0.52-1.04) mg/dL Glucose (74-99) mg/dL POC Glucose (mg/dL) 219 H 214 H 208 H (75-99) mg/dL Hemoglobin A1c (4.2-6.1) % Calcium (8.4-10.2) mg/dL Phosphorus (2.5-4.5) mg/dL Total Protein (6.3-8.2) g/dL Albumin (3.5-5.0) g/dL 08/15/16 08/15/16 08/15/16 Range/Units 16:10 17:09 20:44 WBC (3.8-10.6) k/uL Chloride 113 H (98-107) mmol/L Carbon Dioxide 17 L (22-30) mmol/L Creatinine 0.48 L (0.52-1.04) mg/dL Glucose 196 H (74-99) mg/dL POC Glucose (mg/dL) 159 H 115 H (75-99) mg/dL Hemoglobin A1c (4.2-6.1) % Calcium 8.1 L (8.4-10.2) mg/dL Phosphorus 1.5 L (2.5-4.5) mg/dL Total Protein 5.9 L (6.3-8.2) g/dL Albumin 3.3 L (3.5-5.0) g/dL 08/16/16 08/16/16 08/16/16 Range/Units 00:46 04:24 04:24 WBC 10.8 H (3.8-10.6) k/uL Chloride 111 H (98-107) mmol/L Carbon Dioxide 15 L (22-30) mmol/L Creatinine (0.52-1.04) mg/dL Glucose 365 H (74-99) mg/dL POC Glucose (mg/dL) 137 H (75-99) mg/dL Hemoglobin A1c (4.2-6.1) % Calcium (8.4-10.2) mg/dL Phosphorus 2.0 L (2.5-4.5) mg/dL Total Protein (6.3-8.2) g/dL Albumin (3.5-5.0) g/dL 08/16/16 08/16/16 08/16/16 Range/Units 04:24 05:23 07:27 WBC (3.8-10.6) k/uL Chloride (98-107) mmol/L Carbon Dioxide (22-30) mmol/L Creatinine (0.52-1.04) mg/dL Glucose (74-99) mg/dL POC Glucose (mg/dL) 355 H 345 H (75-99) mg/dL Hemoglobin A1c 10.6 H (4.2-6.1) % Calcium (8.4-10.2) mg/dL Phosphorus (2.5-4.5) mg/dL Total Protein (6.3-8.2) g/dL Albumin (3.5-5.0) g/dL 08/16/16 08/16/16 Range/Units 09:06 11:51 WBC (3.8-10.6) k/uL Chloride (98-107) mmol/L Carbon Dioxide (22-30) mmol/L Creatinine (0.52-1.04) mg/dL Glucose (74-99) mg/dL POC Glucose (mg/dL) 273 H 208 H (75-99) mg/dL Hemoglobin A1c (4.2-6.1) % Calcium (8.4-10.2) mg/dL Phosphorus (2.5-4.5) mg/dL Total Protein (6.3-8.2) g/dL Albumin (3.5-5.0) g/dL Microbiology - Last 24 Hours (Table) 08/15/16 02:00 Urine Culture - Preliminary Urine,Catheterized Assessment and Plan Plan: 1. Diabetic ketoacidosis 2. Acute/severe metabolic acidosis with pH below 7 on presentation 3. Uncontrolled type 1 diabetes mellitus 4. Medication noncompliance 5. Acute kidney injury secondary to dehydration 6. Leukocytosis most likely reactive with no evidence of underlying infection Continue current insulin regimen with Novolin N 32 units in the morning and 28 units at bedtime and Novolin R 12 units 3 times a day before each meal. Continue to monitor blood glucose closely. Anticipate discharge home tomorrow.
[2016-08-16 15:29] LABS: Anion Gap 10 mmol/L; Blood Urea Nitrogen 7 mg/dL (7-17); Calcium 8.7 mg/dL (8.4-10.2); Carbon Dioxide 20 mmol/L (22-30); Chloride 111 mmol/L (98-107); Glucose 99 mg/dL (74-99); Magnesium 1.9 mg/dL (1.6-2.3); Non-African American GFR(MDRD) >60 (>60 ml/min/1.73 sqM); Phosphorous 2.7 mg/dL (2.5-4.5); Potassium 3.9 mmol/L (3.5-5.1); Sodium 141 mmol/L (137-145)
[2016-08-16 17:03] LABS: Glucose,Whole Blood 51 mg/dL (75-99)
[2016-08-16 17:11] LABS: Glucose,Whole Blood 58 mg/dL (75-99)
[2016-08-16 17:28] LABS: Glucose,Whole Blood 69 mg/dL (75-99)
[2016-08-16 17:58] LABS: Glucose,Whole Blood 99 mg/dL (75-99)
[2016-08-16 19:25] LABS: Glucose,Whole Blood 201 mg/dL (75-99)
[2016-08-16 21:34] LABS: Glucose,Whole Blood 249 mg/dL (75-99)
[2016-08-17 01:55] LABS: Glucose,Whole Blood 119 mg/dL (75-99)
[2016-08-17 07:15] LABS: Glucose,Whole Blood 142 mg/dL (75-99)
[2016-08-17] MEDS ORDERED: PANTOPRAZOLE 40 MG TABLET PO SCH (07:30)
[2016-08-17] MEDS: HEPARIN SODIUM,PORCINE 5,000 UNIT/ML 1 ML VIAL SQ SCH (07:46)
[2016-08-17] MEDS: INSULIN LISPRO (humaLOG) 300 UNIT/3 ML VIAL SQ SCH ×2 (07:46→11:56)
[2016-08-17] MEDS: INSULIN REGULAR 100 UNIT/ML VIAL SQ SCH ×2 (07:47→11:56)
[2016-08-17 07:48] VITALS: BP 127/77; PULSE 85; RESP 20; TEMP 98.1
[2016-08-17] MEDS: INSULIN NPH 300 UNIT/3 ML VIAL SQ SCH (07:48)
[2016-08-17 08:12] LABS: Basophils % (A) 1 %; CH 26.8; CHCM 32.9; Eosinophils # (A) 0.3 k/uL (0-0.7); Eosinophils % (A) 4 %; HCT 37.2 % (34.0-46.0); HDW 2.44; HGB 11.9 gm/dL (11.4-16.0); Luc # (Auto) 0.14; Luc % (Auto) 2; Lymphocytes % (A) 43 %; MCH 26.1 pg (25.0-35.0); MCHC 31.8 g/dL (31.0-37.0); MCV 81.8 fL (80.0-100.0); Mean Platelet Volume 6.6; Monocytes # (A) 0.3 k/uL (0-1.0); Monocytes % (A) 5 %; Neutrophils # (A) 3.3 k/uL (1.3-7.7); Neutrophils % (A) 47 %; RBC 4.55 m/uL (3.80-5.40); RDW 12.4 % (11.5-15.5); WBC 7.1 k/uL (3.8-10.6); WBC (Perox) 7.33
[2016-08-17 08:29] LABS: Anion Gap 8 mmol/L; Blood Urea Nitrogen 7 mg/dL (7-17); Calcium 8.7 mg/dL (8.4-10.2); Carbon Dioxide 24 mmol/L (22-30); Chloride 109 mmol/L (98-107); Glucose 150 mg/dL (74-99); Magnesium 1.6 mg/dL (1.6-2.3); Non-African American GFR(MDRD) >60 (>60 ml/min/1.73 sqM); Phosphorous 3.6 mg/dL (2.5-4.5); Potassium 3.7 mmol/L (3.5-5.1); Sodium 141 mmol/L (137-145)
[2016-08-17 11:47] LABS: Glucose,Whole Blood 54 mg/dL (75-99)
[2016-08-17 11:52] LABS: Glucose,Whole Blood 51 mg/dL (75-99)
[2016-08-17 12:09] LABS: Glucose,Whole Blood 59 mg/dL (75-99)
[2016-08-17 12:18] LABS: Glucose,Whole Blood 71 mg/dL (75-99)
--- NOTE | 2016-08-17 13:12 | P.DS ---
Providers Date of admission: 08/15/16 00:18 Expected date of discharge: 08/17/16 Attending physician: Carline Landry Consults: 08/15/16 00:19 Consult Physician Routine Consulting Provider: Stevie Wan Consult Reason/Comments: ICU management of DKA Do you want consulting provider notified?: Yes Primary care physician: Tori Styles Hospital Course: 1. Diabetic ketoacidosis 2. Acute/severe metabolic acidosis with pH below 7 on presentation 3. Uncontrolled type 1 diabetes mellitus 4. Medication noncompliance 5. Acute kidney injury secondary to dehydration 6. Leukocytosis most likely reactive with no evidence of underlying infection This is a 36 -year-old female with past medical history noted below who presented to the emergency room with worsening abdominal pain and elevated blood glucose. She was found to be in DKA and was admitted to the intensive care unit. She admits that she was not compliant with her insulin regimen on a daily basis. She improved significantly with supportive care. She was counseled about medication compliance. She remained in the hospital for more than 2 days. She will be discharged home in a stable condition. She will follow-up with her primary care physician as directed. Her insulin regimen was adjusted during this hospitalization. Patient Condition at Discharge: Fair Plan - Discharge Summary New Discharge Prescriptions: RX: Insulin NPH [humuLIN N] 25 unit SQ HS #3 vial RX: Insulin NPH [humuLIN N] 30 unit SQ DAILY #3 vial RX: Insulin Regular [humuLIN R] 8 unit SQ AC-TID #3 vial Discharge Medication List RX: Lisinopril [Zestril] 10 mg PO DAILY 08/15/16 [History] RX: Insulin NPH [humuLIN N] 25 unit SQ HS #3 vial 08/17/16 [Rx] RX: Insulin NPH [humuLIN N] 30 unit SQ DAILY #3 vial 08/17/16 [Rx] RX: Insulin Regular [humuLIN R] 8 unit SQ AC-TID #3 vial 08/17/16 [Rx] Follow up Appointment(s)/Referral(s): Tori Styles MD [Primary Care Provider] - 1-2 days Patient Instructions/Handouts: Type 2 Diabetes in Adults (DC) Discharge Disposition: HOME SELF-CARE
== END 2016-08-17 13:53 | disposition home or self-care (01) | DRG 638 ==
LOC: EC 21:59 → 6ICU 08-15 00:18 → 4MS4W 08-16 12:37
PROVIDERS: ADMIT Internal Medicine; ATTEND Internal Medicine
DX: E10.10 Type 1 diabetes mellitus with ketoacidosis without coma (principal); N17.9 Acute kidney failure, unspecified; E86.0 Dehydration; Z79.4 Long term (current) use of insulin; Z79.899 Other long term (current) drug therapy; Z91.14 Patient's other noncompliance with medication regimen; Z87.891 Personal history of nicotine dependence; Z82.49 Family history of ischemic heart disease and other diseases of the circulatory system
CPT/HCPCS: 36415; 36600; 80048; 80051; 80053; 81001; 82009; 82565; 82805; 82947; 83036; 83605; 83735; 84100; 84520; 85025; 85730; 87086; 93005; 96365; 96366; 96375; 96376; 99285